=== PATIENT | female | born 1950 | race Asian ===

== ENCOUNTER 2018-12-27 19:02 | Emergency (ER) | payer MEDICARE, OTHER ==
[~2018-12-27] VITALS: Ht 157.5 cm; Wt 62.1 kg
[2018-12-27 19:07] VITALS: Ht 157.5 cm; Wt 62.1 kg
--- NOTE | 2018-12-27 20:57 | ERD ---
ER Documentation Chief Complaint Chief Complaint fell while standing on a chair around 1800, c/o pain right wrist/buttock ROS All systems reviewed and are negative except as per history of present illness. Allergies Allergies: Coded Allergies: No Known Drug Allergies (Verified Allergy, Unknown, 12/27/18) PMhx/Soc Medical and Surgical Hx: pt denies Medical Hx, pt denies Surgical Hx Hx Alcohol Use: No Hx Substance Use: No Hx Tobacco Use: No Smoking Status: Never smoker FmHx Family History: No diabetes, No coronary disease Physical Exam Vitals Vital Signs Date Temp Pulse Resp B/P (MAP) Pulse Ox O2 O2 Flow FiO2 Time Delivery Rate 12/27/18 99.1 79 20 161/83 97 19:07 (109) Physical Exam Const: No acute distress Head: Atraumatic Eyes: Normal Conjunctiva ENT: Normal External Ears, Nose and Mouth. Neck: Full range of motion. No meningismus. Resp: Clear to auscultation bilaterally Cardio: Regular rate and rhythm, no murmurs Abd: Soft, non tender, non distended. Normal bowel sounds Skin: No petechiae or rashes Back: No midline or flank tenderness Ext: No cyanosis, or edema Neur: Awake and alert Psych: Normal Mood and Affect Results 24 hrs Current Medications Medications Dose Sig/Michael Start Time Status Last (Trade) Ordered Route PRN Stop Time Admin Dose Reason Admin Ibuprofen 400 mg ONCE ONCE 12/27/18 DC 12/27/18 (Motrin) PO 21:00 21:13 12/27/18 21:01 1 tab ONCE ONCE 12/27/18 DC Acetaminophen PO 21:00 / 12/27/18 21:01 Hydrocodone Bitart ([place] (5/325)) Departure Diagnosis: Primary Impression: Fracture of right distal radius Condition: Stable Additional Instructions: Thank you very much for allowing us to participate in your care. Your health and safety is our top priority at [facility]. The evaluation in the emergency department has been done to rule out an acute emergency. Chronic, [id number] conditions may have not been evaluated; therefore, you need to follow up with a primary care provider in the next 48h. If symptoms persist, worsen or new symptoms develop, then patient should return to the ED immediately. Call your primary care doctor TOMORROW for an appointment during the next 2-4 days and bring all the information provided. Have prescriptions filled and follow precisely the directions on the label. If the symptoms get worse and your provider is unavailable, return to the Emergency Department immediately. YOVANY JARVIS MD Dec 27, 2018 20:57
[2018-12-27] MEDS ORDERED: HYDROCODONE/APAP (5/325) TAB PO ONE (21:00)
[2018-12-27] MEDS ORDERED: IBUPROFEN 200 MG TAB PO ONE (21:00)
[2018-12-27] MEDS ORDERED: IBUP-1561 PO (21:50)
[2018-12-27] MEDS ORDERED: ACET325T33 PO (21:50)
[2018-12-27 22:04] VITALS: BP 132/90; PULSE 95; RESP 18
== END 2018-12-27 22:05 | disposition home or self-care (01) ==
LOC: FTE 19:02
DX: S52.501A Unspecified fracture of the lower end of right radius, initial encounter for closed fracture (principal); W07.XXXA Fall from chair, initial encounter; Y92.9 Unspecified place or not applicable